=== PATIENT | female | born 1990 | race Two or more races ===

== ENCOUNTER 2022-07-27 18:30 | Emergency (ER) | payer MEDICAID, OTHER ==
[~2022-07-27] VITALS: Ht 167.6 cm; Wt 101.0 kg
[2022-07-27 18:34] VITALS: BP 144/88
[2022-07-27] MEDS ORDERED: GUAIFENESIN 200MG/10ML SUGAR FREE UDC PO ONE (22:00)
[2022-07-27] MEDS ORDERED: ACETAMINOPHEN 325MG TABLET PO ONE (22:00)
== END 2022-07-27 22:26 | disposition left against medical advice (07) ==
LOC: ER 18:30
DX: R51.9 Headache, unspecified (principal); R05.9 Cough, unspecified; J02.9 Acute pharyngitis, unspecified
CPT/HCPCS: 99281